=== PATIENT | female | born 1970 | race Caucasian/White ===

== ENCOUNTER 2016-04-22 08:21 | Emergency (ER) | payer MEDICAID ==
[~2016-04-22] VITALS: Ht 172.7 cm; Wt 118.6 kg
[~2016-04-22 08:21] MED LIST: HYDR-3533 PO; IBUP800T23 PO
[2016-04-22 08:27] VITALS: BP 144/87; PULSE 75; RESP 16; TEMP 98.2; O2SAT 96
--- NOTE | 2016-04-22 08:33 | PD ---
HPI Chief Complaint: Cold / Flu Symptoms Time Seen by Provider: 08:33 Travel History International Travel<30 days: No Contact w/Intl Traveler<30days: No Traveled to known affect area: No History of Present Illness HPI 45-year-old female came with flulike symptoms since past 3 days. She is complaining of some nasal and facial congestion, sore throat, cough, body aches. This has been going on since Monday. A number of her coworkers have the same symptoms. Patient did not get her flu shot this winter. Vital signs were otherwise stable. Patient says at home she's been getting hot with goose bumps but she took her temperature and she was afebrile. No history of vomiting or diarrhea. She's been answering questions appropriately. FORMERLY [facility] Past Medical History Narrative Medical List of her past medical, social and family history has been reviewed from the nursing note. Diabetes: Yes (GESTATIONAL) Diminished Hearing: No Immunizations Current: Yes Menopausal: No : 2 Para: 2 Past Surgical History Tonsillectomy: Yes Social History Alcohol Use: Yes (SOCIALLY) Tobacco Use: No Substance Use: No Allergies-Medications (Allergen,Severity, Reaction): Coded Allergies: Sodium Hypochlorite (Unverified Allergy, Severe, rash, 04/22/16) Bactrim (Verified Allergy, Intermediate, Nausea/Vomiting, 04/22/16) Codeine (Verified Allergy, Intermediate, GI UPSET, SWEATS, HIVES, 04/22/16) Penicillin (Verified Allergy, Intermediate, GI UPSET, SWEATS, HIVES, ) Comments List of her allergies reviewed from the nursing note. Reported Meds & Prescriptions Reported Meds & Active Scripts Active No Active Prescriptions or Reported Medications Narrative Medication List of her home medications reviewed from the nursing note. Review of Systems Except as stated in HPI: all other systems reviewed are Neg Physical Exam Narrative GENERAL: Awake, alert, mild distress SKIN: Warm and dry. HEAD: Atraumatic. Normocephalic. EYES: Pupils equal and round. No scleral icterus. No injection or drainage. ENT: No nasal bleeding or discharge. Mucous membranes pink and moist. Some frontal tenderness over the frontal sinuses on palpation NECK: Trachea midline. No JVD. CARDIOVASCULAR: Regular rate and rhythm. No murmur appreciated. RESPIRATORY: No accessory muscle use. Clear to auscultation. Breath sounds equal bilaterally. GASTROINTESTINAL: Abdomen soft, non-tender, nondistended. Hepatic and splenic margins not palpable. MUSCULOSKELETAL: No obvious deformities. No clubbing. No cyanosis. No edema. NEUROLOGICAL: Awake and alert. No obvious cranial nerve deficits. Motor grossly within normal limits. Normal speech. PSYCHIATRIC: Appropriate mood and affect; insight and judgment normal. Data Data Last Documented VS Orders Influenzae A/B Antigen (04/22/16 08:53) MDM Medical Decision Making Medical Screen Exam Complete: Yes Emergency Medical Condition: Yes Medical Record Reviewed: Yes Differential Diagnosis Influenza, viral illness, URI Narrative Course 9:21 AM influenza is negative. I have educated her regarding viral illness/URI/ , cold. She we will do symptomatic treatment. She understands. She'll be discharged home. Procedures EKG Prior to Arrival: No Diagnosis Primary Impression: URI (upper respiratory infection) Qualified Code: J06.9 - Upper respiratory tract infection, unspecified type Additional Impression: Viral illness Referrals: Primary Care Physician 3 days Departure Forms: Tests/Procedures, Work Release Enter return to work date: Apr 25, 2016 Additional Instructions: Please return to the ER if the condition worsens or any other new concerns. Take Motrin/ibuprofen/Tylenol for fever, headache, body aches as needed. Drink lots of fluids to keep herself hydrated. Warm tea with honey and lemon will help. Follow-up with your primary care in couple days. Med/Other Pt SpecificInfo: No Change to Meds Scripts No Active Prescriptions or Reported Meds Disposition: DISCHARGE HOME Condition: Ehsan Teresa MD Apr 22, 2016 08:33 lots of fluids to keep herself hydrated. Warm tea with honey and lemon will help. Follow-up with your primary care in couple days. Med/Other Pt SpecificInfo: No Change to Meds Scripts No Active Prescriptions or Reported Meds Disposition: DISCHARGE HOME Condition: Ehsan Teresa MD Apr 22, 2016 08:33
[2016-04-22 09:31] VITALS: BP 128/83
== END 2016-04-22 09:39 | disposition home or self-care (01) ==
LOC: PHED 08:21
DX: J06.9 Acute upper respiratory infection, unspecified (principal); B34.9 Viral infection, unspecified
CPT/HCPCS: 87804; 99283

== ENCOUNTER 2016-06-20 17:50 | Emergency (ER) | payer MEDICAID, OTHER ==
[~2016-06-20] VITALS: Ht 170.2 cm; Wt 121.0 kg
[2016-06-20 17:52] VITALS: BP 149/103; PULSE 93; RESP 16; TEMP 98.2; O2SAT 94
--- NOTE | 2016-06-20 18:11 | PD ---
HPI Chief Complaint: Pain: Acute or Chronic Time Seen by Provider: 18:09 Travel History International Travel<30 days: No Contact w/Intl Traveler<30days: No Traveled to known affect area: No History of Present Illness HPI 45-year-old female presents the emergency department with several day history of pain in the left calf which she states started when she "stretched". She says it has gotten progressively worse over the past several days, and is worse with ambulation. Patient denies any history of DVT or medications. She denies cough, fever, shortness of breath, or other constitutional symptoms. Patient is allergic to Bactrim, codeine, penicillin, and sodium hypochlorite. PFSH Past Medical History Hx Anticoagulant Therapy: No Cardiovascular Problems: Yes (GESTATIONAL HTN) Diabetes: Yes (GESTATIONAL) Diminished Hearing: No Immunizations Current: Yes ?: Not Menopausal: No : 2 Para: 2 Past Surgical History Tonsillectomy: Yes Social History Alcohol Use: Yes (SOCIALLY) Tobacco Use: No Substance Use: No Allergies-Medications (Allergen,Severity, Reaction): Coded Allergies: Sodium Hypochlorite (Unverified Allergy, Severe, rash, 06/20/16) Bactrim (Verified Allergy, Intermediate, Nausea/Vomiting, 06/20/16) Codeine (Verified Allergy, Intermediate, GI UPSET, SWEATS, HIVES, 06/20/16) Penicillin (Verified Allergy, Intermediate, GI UPSET, SWEATS, HIVES, ) Reported Meds & Prescriptions Reported Meds & Active Scripts Active No Active Prescriptions or Reported Medications Review of Systems Except as stated in HPI: all other systems reviewed are Neg General / Constitutional: No: Fever, Chills Eyes: No: Visual changes HENT: No: Headaches Cardiovascular: No: Chest Pain or Discomfort Respiratory: No: Shortness of Breath Gastrointestinal: No: Abdominal Pain Genitourinary: No: Dysuria Musculoskeletal: Positive: Edema, Pain (left lower calf.) Skin: No Rash Neurologic: No: Weakness Psychiatric: No: Depression Endocrine: No: Polydipsia Hematologic/Lymphatic: No: Easy Bruising Physical Exam Narrative GENERAL: Obese female in no acute distress. SKIN: Warm and dry. Normal color. Normal turgor. No signs of infection or cellulitis. HEAD: Atraumatic. Normocephalic. EYES: Pupils equal and round. No scleral icterus. No injection or drainage. ENT: No nasal bleeding or discharge. Mucous membranes pink and moist. Pharynx is clear. NECK: Trachea midline. Neck is supple nontender. CARDIOVASCULAR: Regular rate and rhythm. RESPIRATORY: No accessory muscle use. Clear to auscultation. Breath sounds equal bilaterally. GASTROINTESTINAL: Abdomen soft, non-tender, nondistended. Hepatic and splenic margins not palpable. MUSCULOSKELETAL: Extremities without clubbing, cyanosis, or edema. No obvious deformities. Patient has tenderness along the posterior left calf more medial than lateral, which is worse with dorsiflexion and plantar flexion. Patient complains of some mild tenderness as well with palpation of the distal medial thigh. No neurovascular deficits appreciated. NEUROLOGICAL: Awake and alert. No obvious cranial nerve deficits. Motor grossly within normal limits. Five out of 5 muscle strength in the arms and legs. Normal speech. PSYCHIATRIC: Appropriate mood and affect; insight and judgment normal. Data Data Last Documented VS Vital Signs Date Time Temp Pulse Resp B/P Pulse Ox O2 Delivery O2 Flow Rate FiO2 06/20/16 17:52 98.2 93 16 149/103 94 Orders Us Leg Venous Doppler (06/20/16 18:14) Complete Blood Count With Diff (06/20/16 18:14) Comprehensive Metabolic Panel (06/20/16 18:14) Prothrombin Time / Inr (Pt) (06/20/16 18:14) Act Partial Throm Time (Ptt) (06/20/16 18:14) Iv Access Insert/Monitor (06/20/16 18:14) Sodium Chloride 0.9% Flush (Ns Flush) (06/20/16 18:15) Ketorolac Inj (Toradol Inj) (06/20/16 18:15) Labs Laboratory Tests Test 06/20/16 18:40 White Blood Count 9.6 TH/MM3 Red Blood Count 5.19 MIL/MM3 Hemoglobin 12.7 GM/DL Hematocrit 39.9 % Mean Corpuscular Volume 76.8 FL Mean Corpuscular Hemoglobin 24.5 PG Mean Corpuscular Hemoglobin 31.9 % Concent Red Cell Distribution Width 15.1 % Platelet Count 375 TH/MM3 Mean Platelet Volume 8.2 FL Neutrophils (%) (Auto) 67.8 % Lymphocytes (%) (Auto) 20.1 % Monocytes (%) (Auto) 9.2 % Eosinophils (%) (Auto) 2.4 % Basophils (%) (Auto) 0.5 % Neutrophils # (Auto) 6.6 TH/MM3 Lymphocytes # (Auto) 1.9 TH/MM3 Monocytes # (Auto) 0.9 TH/MM3 Eosinophils # (Auto) 0.2 TH/MM3 Basophils # (Auto) 0.0 TH/MM3 CBC Comment AUTO DIFF Prothrombin Time 11.0 SEC Prothromb Time International 1.0 RATIO Ratio Activated Partial 33.8 SEC Thromboplast Time Sodium Level 141 MEQ/L Potassium Level 3.9 MEQ/L Chloride Level 105 MEQ/L Carbon Dioxide Level 29.6 MEQ/L Anion Gap 6 MEQ/L Blood Urea Nitrogen 12 MG/DL Creatinine 0.83 MG/DL Estimat Glomerular Filtration 75 ML/MIN Rate Random Glucose 102 MG/DL Calcium Level 9.1 MG/DL Total Bilirubin 0.2 MG/DL Aspartate Amino Transf 20 U/L (AST/SGOT) Alanine Aminotransferase 50 U/L (ALT/SGPT) Alkaline Phosphatase 76 U/L Total Protein 7.5 GM/DL Albumin 3.5 GM/DL [facility] Medical Decision Making Medical Screen Exam Complete: Yes Emergency Medical Condition: Yes Differential Diagnosis Calf strain. Muscle spasm. DVT. Narrative Course Labs ordered including CBC, CMP, PT PTT and INR. IV access is obtained. Patient is given 30 mg Toradol IV. Ultrasound of the left lower extremity is ordered. Ultrasound shows no significant DVT. Labs are unremarkable. Esdras bandages placed on the left lower calf. Patient felt improved after the Toradol IV. Patient discharged home with prescription for 600 mg ibuprofen 4 times daily # 40. Patient is to use moist heat to this area frequently through the day as much as possible. Patient is to use compression either with stockings were Esdras bandages for the next week until symptoms improve. Patient take extra strength Tylenol 2 every 6 hours as well. Patient follow with her primary care physician or return to emergency department if symptoms do not improve or worsen. Diagnosis Primary Impression: Tenderness of left calf Referrals: Primary Care Physician Patient Instructions: General Instructions, Muscle Strain (ED) Additional Instructions: Patient discharged home with prescription for 600 mg ibuprofen 4 times daily # 40. Patient is to use moist heat to this area frequently through the day as much as possible. Patient is to use compression either with stockings were Esdras bandages for the next week until symptoms improve. Patient take extra strength Tylenol 2 every 6 hours as well. Patient follow with her primary care physician or return to emergency department if symptoms do not improve or worsen. Med/Other Pt SpecificInfo: Prescription(s) given Scripts No Active Prescriptions or Reported Meds Disposition: 01 DISCHARGE HOME Condition: Stable Edson Aguayo Jun 20, 2016 18:11
[2016-06-20] MEDS ORDERED: KETOROLAC TROMETHAMINE 30 MG/ML (IVP) VIAL IVP ONE (18:15)
[2016-06-20] MEDS ORDERED: SODIUM CHLORIDE 0.9% FLUSH 10 ML FLUSH IV FLUSH PRN (18:15)
[2016-06-20 18:55] LABS: AUTOMATED NEUTROPHIL # 6.6 TH/MM3 (1.8-7.7); BASOPHIL % 0.5 % (0.0-2.0); EOSINOPHIL # 0.2 TH/MM3 (0-0.4); EOSINOPHIL % 2.4 % (0.0-4.0); HEMATOCRIT 39.9 % (35.0-46.0); LYMPH % 20.1 % (9.0-44.0); LYMPHOCYTE # 1.9 TH/MM3 (1.0-4.8); MEAN CELL VOLUME 76.8 FL (80.0-100.0); MEAN CORPUSCULAR HEMOGLOBIN 24.5 PG (27.0-34.0); MEAN CORPUSCULAR HGB CONC 31.9 % (32.0-36.0); MONO % 9.2 % (0.0-8.0); NEUT % 67.8 % (16.0-70.0); PLATELET COUNT 375 TH/MM3 (150-450); RED BLOOD COUNT 5.19 MIL/MM3 (4.00-5.30); RED CELL DISTRIBUTION WIDTH 15.1 % (11.6-17.2); WHITE BLOOD COUNT 9.6 TH/MM3 (4.0-11.0)
--- NOTE | 2016-06-20 19:11 | RADHPO ---
EXAM DATE/TIME: 06/20/2016 18:51 [facility] COMPARISON: US LEG LEFT VENOUS DOPPLER, July 01, 2015, 7:39. INDICATIONS : Left leg pain. MEDICAL HISTORY : Hypertension. Diabetes. SURGICAL HISTORY : Tonsillectomy. ENCOUNTER: Initial ACUITY: 4 - 6 days PAIN SCORE: 3/10 LOCATION: Left leg. TECHNIQUE: Venous ultrasound of the leg was performed from the inguinal ligament to the proximal calf. Real-keny e, color Doppler and spectral tracing, compression and augmentation techniques were used. FINDINGS: There is normal compressibility of the deep venous system from the inguinal region to the proximal ca lf. No echogenic clot is seen in the lumen of the common femoral, femoral, popliteal, and posterior tibial veins. There is a normal response of the venous system to proximal and distal augmentation an d respiration. CONCLUSION: Normal examination. Cirilo Young MD on June 20, 2016 at 19:09 Board Certified Radiologist. This report was verified electronically.
[2016-06-20 19:12] LABS: HEMO FLAGS AUTO DIFF
[2016-06-20 19:14] LABS: CHLORIDE 105 MEQ/L (98-107); POTASSIUM 3.9 MEQ/L (3.5-5.1); SODIUM (NA) 141 MEQ/L (136-145)
[2016-06-20 19:17] LABS: ANION GAP 6 MEQ/L (5-15); BICARBONATE 29.6 MEQ/L (21.0-32.0)
[2016-06-20 19:18] LABS: BLOOD UREA NITROGEN 12 MG/DL (7-18)
[2016-06-20 19:20] LABS: ALT (GPT) 50 U/L (10-53); AST (GOT) 20 U/L (15-37)
[2016-06-20 19:21] LABS: GLOMERULAR FILTRATION RATE 75 ML/MIN (>89)
[2016-06-20 19:22] LABS: TOTAL BILIRUBIN ADULT 0.2 MG/DL (0.2-1.0)
[2016-06-20 19:23] LABS: ALKALINE PHOSPHATASE 76 U/L (45-117)
[2016-06-20 19:25] LABS: APTT (PATIENT) 33.8 SEC (24.3-30.1)
[2016-06-20] MEDS ORDERED: IBUP-232 PO (19:29)
[2016-06-20] MEDS ORDERED: EXTR500C PO (19:29)
[2016-06-20 19:50] VITALS: BP 143/96; RESP 16
[2016-06-20 19:58] LABS: PLATELET ESTIMATE SMEAR NORMAL (NORMAL); PLATELET MORPHOLOGY NORMAL (NORMAL); SCAN/DIFF AUTO DIFF CONFIRMED
== END 2016-06-20 19:50 | disposition home or self-care (01) ==
LOC: PHED 17:50 → PHEFT 19:50
DX: M79.662 Pain in left lower leg (principal)
CPT/HCPCS: 80053; 85025; 85610; 85730; 93971; 96374; 99284; J1885

== ENCOUNTER 2016-08-28 21:52 | Emergency (ER) | payer MEDICAID ==
[~2016-08-28] VITALS: Ht 170.2 cm; Wt 121.0 kg
[~2016-08-28 21:52] MED LIST changes: +EXTR500C PO; -HYDR-3533 PO; +IBUP-232 PO; -IBUP800T23 PO
[2016-08-28 21:55] VITALS: BP 187/107; PULSE 82; RESP 18; TEMP 98.4; O2SAT 98
[2016-08-28] MEDS ORDERED: IBUP800T23 PO (23:09)
--- NOTE | 2016-08-28 23:10 | PD ---
HPI Chief Complaint: Musculoskeletal Complaint Time Seen by Provider: 23:10 Travel History International Travel<30 days: No Contact w/Intl Traveler<30days: No Traveled to known affect area: No History of Present Illness HPI 45-year-old female with 3 years of right posterior heel pain resents to the emergency department stating that it has continued to progressively worsen. Patient states she's been to an orthopedist and a lpn per diem and has had imaging as well as splinting and injections to the site and states that he did not provide any adequate relief. Patient states that 2 years ago she saw lpn per diem and had immobilization of the foot and had injections and taping it only helped temporarily orthopedist told her that she could could have an MRI that may be helpful but stated that she did not do so. Patient states that her pain is ongoing and 5 decided to have it rechecked at this time. Patient has taken no medications. Patient has not used any crutches to decrease weightbearing or assist with ambulation. Patient's had no recent injury. Patient denies other concerns or complaints. PFSH Past Medical History Hx Anticoagulant Therapy: No Cardiovascular Problems: Yes (GESTATIONAL HTN) Diabetes: Yes (GESTATIONAL) Patient Takes Glucophage: No Diminished Hearing: No Medical other: Yes (CHRONIC HEEL PAIN) Immunizations Current: Yes Tetanus Vaccination: < 5 Years Influenza Vaccination: No ?: Not LMP: 2 weeks ago Menopausal: No : 2 Para: 2 Past Surgical History Tonsillectomy: Yes Social History Alcohol Use: Yes (SOCIALLY) Tobacco Use: No Substance Use: No Allergies-Medications (Allergen,Severity, Reaction): Coded Allergies: Sodium Hypochlorite (Unverified Allergy, Severe, rash, 06/20/16) Bactrim (Verified Allergy, Intermediate, Nausea/Vomiting, 06/20/16) Codeine (Verified Allergy, Intermediate, GI UPSET, SWEATS, HIVES, 06/20/16) Penicillin (Verified Allergy, Intermediate, GI UPSET, SWEATS, HIVES, ) Reported Meds & Prescriptions Reported Meds & Active Scripts Active Ibuprofen 800 Mg Tab 800 Mg PO Q8H PRN Physical Exam Narrative GENERAL: Well-developed well-nourished female in no acute distress no respiratory distress MUSCULOSKELETAL: No cyanosis, or edema. Attention right lower extremity posterior foot/heel area of soft tissue tenderness to palpation without redness induration fluctuance and no increased warmth. Patient with warm pink foot without erythema or edema or deformity. Dorsalis pedis pulse 2+ to palpation posterior tibialis pulse 2+ to palpation capillary refill brisk less than 2 seconds per digit no pallor or coolness. Patient does not have plantar surface pain no obvious loss of skin integrity or puncture wound. Data Data Last Documented VS Vital Signs Date Time Temp Pulse Resp B/P Pulse Ox O2 Delivery O2 Flow Rate FiO2 08/28/16 21:55 98.4 82 18 187/107 98 Orders Mandatory Outpatient Referral (08/28/16 23:10) MDM Medical Decision Making Medical Screen Exam Complete: Yes Emergency Medical Condition: Yes Medical Record Reviewed: Yes Differential Diagnosis Tendinitis calcaneal spur plantar fasciitis stress fracture Narrative Course Discussed with patient re-imaging of plain film to evaluate for stress fracture although most likely has a tendinitis versus plantar fasciitis. Patient states she does not want a plain film she wants us to fix this heel and states that if we cannot fix the heel then she does not want us to do anything. Patient is offered a mandatory referral; patient is aware that there is no emergent change and that at this point in time without even a plain film and without imaging for the past [address] or an MRI is not indicated at this time as a plain film may be able to provide helpful information. Patient does not want any imaging performed and is desirous of being discharged to home patient is offered prescription for ibuprofen and a mandatory referral. Diagnosis Primary Impression: Ankle tendinitis Referrals: Stereotyper call for appointment Patient Instructions: General Instructions Additional Instructions: Elevate right ankle Follow-up with the lpn per diem Apply moist heat to heal May use as tolerated ibuprofen for inflammatory pain Return to the emergency department for any concerns Med/Other Pt SpecificInfo: Prescription(s) given Scripts Ibuprofen 800 Mg Sll338 Mg PO Q8H PRN (PAIN GREATER THAN 5) #15 TAB Ref 0 Prov:Marielos Serra MD 08/28/16 Disposition: 01 DISCHARGE HOME Condition: Stable Marielos Serra MD Aug 28, 2016 23:10
== END 2016-08-28 23:16 | disposition home or self-care (01) ==
LOC: PHEFT 21:52
DX: M77.9 Enthesopathy, unspecified (principal); Z87.39 Personal history of other diseases of the musculoskeletal system and connective tissue
CPT/HCPCS: 99283

== ENCOUNTER 2016-10-21 13:30 | Emergency (ER) | payer MEDICAID ==
[~2016-10-21] VITALS: Ht 170.2 cm; Wt 121.3 kg
[~2016-10-21 13:30] MED LIST changes: -EXTR500C PO; -IBUP-232 PO; +IBUP800T23 PO
[2016-10-21 13:47] VITALS: BP 171/77; PULSE 65; RESP 14; TEMP 97.6; O2SAT 97
[2016-10-21] MEDS ORDERED: KETOROLAC TROMETHAMINE 60 MG/2 ML (IM) VIAL IM ONE (15:00)
--- NOTE | 2016-10-21 15:03 | PD ---
HPI Chief Complaint: back pain Time Seen by Provider: 14:46 Travel History International Travel<30 days: No Contact w/Intl Traveler<30days: No History of Present Illness HPI This is a 46-year-old female who presents to the emergency department with back pain affecting mostly the right side, constant for the past several days, worse with movement of her right arm and movement from side to side, improved with rest described as an aching pain. Occasionally radiates down to her low back and then after her neck. She denies any dysuria, hematuria, fevers, chills, shortness of breath or chest pain. PFSH Past Medical History Hx Anticoagulant Therapy: No Cardiovascular Problems: Yes (GESTATIONAL HTN) Diabetes: Yes (GESTATIONAL) Diminished Hearing: No Immunizations Current: Yes Menopausal: No : 2 Para: 2 Past Surgical History Tonsillectomy: Yes Social History Alcohol Use: Yes (SOCIALLY) Tobacco Use: No Substance Use: No Allergies-Medications (Allergen,Severity, Reaction): Coded Allergies: sodium hypochlorite solution (Unverified Allergy, Severe, rash, 10/11/16) codeine (Unverified Allergy, Intermediate, GI UPSET, SWEATS, HIVES, ) penicillin G (Unverified Allergy, Intermediate, GI UPSET, SWEATS, HIVES, ) sulfamethoxazole (Unverified Allergy, Intermediate, Nausea/Vomiting, ) trimethoprim (Unverified Allergy, Intermediate, Nausea/Vomiting, 10/11/16) Reported Meds & Prescriptions Reported Meds & Active Scripts Active No Active Prescriptions or Reported Medications Review of Systems Except as stated in HPI: all other systems reviewed are Neg Physical Exam Narrative GENERAL:Well appearing, no acute distress SKIN: Focused skin assessment warm and dry. HEAD: Atraumatic. Normocephalic. EYES: Pupils equal and round. No injection or drainage. ENT: Moist mucous membranes NECK: Trachea midline. CARDIOVASCULAR: Regular rate and rhythm. No murmur appreciated. RESPIRATORY: Clear to auscultation. Breath sounds equal bilaterally. GASTROINTESTINAL: Abdomen soft, non-tender, nondistended. MUSCULOSKELETAL: Tender to palpation in the right mid thoracic musculature. Pain is reproduced when the patient abducts and internally rotates her right shoulder. No focal vertebral tenderness. NEUROLOGICAL: Awake and alert. No obvious cranial nerve deficits. Moving all extremities. PSYCHIATRIC: Appropriate mood and affect; insight and judgment normal. Data Data Last Documented VS Vital Signs Date Time Temp Pulse Resp B/P (MAP) Pulse Ox O2 Delivery O2 Flow Rate FiO2 10/21/16 13:47 97.6 65 14 171/77 (108) 97 Room Air Orders Orders Spine, Thoracic-Ap/Lat/Sw(3vw) (10/21/16 ) Ketorolac Inj (Toradol Inj) (10/21/16 15:00) MDM Medical Decision Making Medical Screen Exam Complete: Yes Emergency Medical Condition: Yes Interpretation(s) Afebrile, no tachycardia, hypertensive Differential Diagnosis Compression fracture, thoracic strain, epidural abscess, pulmonary embolism, nephrolithiasis Narrative Course This is a 46-year-old female who presents to the emergency department with back pain in the right thoracic area. She doesn't remember sustaining an injury. She has no shortness of breath or hypoxia to suggest pulmonary embolism. She has no urinary complaints. The pain is elicited when she moves her arm suggesting is musculoskeletal. X-ray of the thoracic spine is reassuring. I think the patient can be discharged home with anti-inflammatories and muscle relaxer. Diagnosis Primary Impression: Strain of thoracic spine Qualified Codes: S29.019A - Strain of muscle and tendon of unspecified wall of thorax, initial encounter Patient Instructions: General Instructions Additional Instructions: If you develop numbness, weakness, severe pain, chest pain, shortness of breath or new symptoms return to the emergency room. Med/Other Pt SpecificInfo: Prescription(s) given Scripts Carisoprodol (Soma) 350 Mg Tab 350 MG PO QID Y for PAIN, #10 TAB 0 Refills Prov: Shanika Gonzales MD 10/21/16 Meloxicam (Meloxicam) 7.5 Mg Tab 7.5 MG PO DAILY for Arthritis Pain for 10 Days, TAB 0 Refills Prov: Shanika Gonzales MD 10/21/16 Disposition: 01 DISCHARGE HOME Condition: Stable Shanika Gonzales MD Oct 21, 2016 15:03
[2016-10-21] MEDS ORDERED: MELO7.5T4 PO (15:42)
[2016-10-21] MEDS ORDERED: SOMA350T PO (15:42)
--- NOTE | 2016-10-21 15:57 | RADRPT ---
EXAM DATE/TIME: 10/21/2016 15:09 [facility] COMPARISON: No previous studies available for comparison. INDICATIONS : 3 days of back pain that shoots from middle of back to right shoulder blade. MEDICAL HISTORY : None. SURGICAL HISTORY : None. ENCOUNTER: Initial ACUITY: 3 days PAIN SCORE: 8/10 LOCATION: middle t spine FINDINGS: There is normal alignment of the thoracic vertebral bodies. Vertebral body height is maintained. No evidence of fracture or subluxation. Pedicles are intact at all levels. The paravertebral reflecti ons are not thickened. CONCLUSION: Unremarkable examination of the thoracic spine. Aris Ellington Jr., MD on October 21, 2016 at 15:50 Board Certified Radiologist. This report was verified electronically.
[2016-10-21 16:22] VITALS: BP 149/84
== END 2016-10-21 16:27 | disposition home or self-care (01) ==
LOC: PHED 13:30
DX: S29.019A Strain of muscle and tendon of unspecified wall of thorax, initial encounter (principal); X58.XXXA Exposure to other specified factors, initial encounter
CPT/HCPCS: 72072; 96372; 99284; J1885

== ENCOUNTER 2017-02-14 08:37 | Emergency (ER) | payer MEDICAID ==
[~2017-02-14] VITALS: Ht 157.5 cm; Wt 121.1 kg
[~2017-02-14 08:37] MED LIST changes: -IBUP800T23 PO; +MELO7.5T27 PO; +SOMA350T PO
[2017-02-14 08:44] VITALS: BP 142/94; PULSE 93; RESP 18; TEMP 98.6; O2SAT 97
--- NOTE | 2017-02-14 09:12 | PD ---
HPI Chief Complaint: Cold / Flu Symptoms Time Seen by Provider: 09:10 Travel History International Travel<30 days: No Contact w/Intl Traveler<30days: No Traveled to known affect area: No History of Present Illness HPI 46-year-old female presents the emergency department with 2 day history of increasing upper respiratory congestion, cough, headache, fever, chills, and body aches. Patient denies nausea or vomiting. Her cough is nonproductive. She has a positive exposure to influenza at work. Patient feels worse today than she did yesterday. She is unsure specific fever home and has had chills. She is allergic to codeine, penicillin, sodium hypochlorite solution, and sulfa. PFSH Past Medical History Hx Anticoagulant Therapy: No Cardiovascular Problems: Yes (GESTATIONAL HTN) Diabetes: Yes (GESTATIONAL) Diminished Hearing: No Immunizations Current: Yes ?: Not Menopausal: No : 2 Para: 2 Past Surgical History Tonsillectomy: Yes Social History Alcohol Use: Yes (SOCIALLY) Tobacco Use: No Substance Use: No Allergies-Medications (Allergen,Severity, Reaction): Coded Allergies: sodium hypochlorite solution (Unverified Allergy, Severe, rash, 02/14/17) codeine (Unverified Allergy, Intermediate, GI UPSET, SWEATS, HIVES, ) penicillin G (Unverified Allergy, Intermediate, GI UPSET, SWEATS, HIVES, 02/14/17) sulfamethoxazole (Unverified Allergy, Intermediate, Nausea/Vomiting, 02/14) trimethoprim (Unverified Allergy, Intermediate, Nausea/Vomiting, 02/14/17) Reported Meds & Prescriptions Reported Meds & Active Scripts Active Tamiflu (Oseltamivir Phosphate) 75 Mg Cap 75 Mg PO BID 5 Days Review of Systems Except as stated in HPI: all other systems reviewed are Neg General / Constitutional: Positive: Chills, No: Fever Eyes: No: Visual changes HENT: Positive: Headaches, Sore Throat, Rhinitis, Rhinorrhea, Congestion, No: Nosebleed, Neck Stiffness, Neck Pain, Gingival Bleeding, Dental Difficulties, Ear Discharge, Earache Cardiovascular: No: Chest Pain or Discomfort Respiratory: Positive: Cough, Sneezing, Night Sweats, No: Shortness of Breath, Wheezing, Orthopnea, Hemoptysis, Pleuritic Pain Gastrointestinal: No: Abdominal Pain Genitourinary: No: Dysuria Musculoskeletal: No: Pain Skin: No Rash Neurologic: No: Weakness Psychiatric: No: Depression Endocrine: No: Polydipsia Hematologic/Lymphatic: No: Easy Bruising Physical Exam Narrative GENERAL: Patient appears ill but not septic. SKIN: Warm and dry. Decreased pallor. Normal turgor. HEAD: Atraumatic. Normocephalic. EYES: Pupils equal and round. No scleral icterus. No injection or drainage. ENT: No nasal bleeding, but moderate clear nasal discharge. Mucous membranes pale blue and moist. Posterior pharynx appears unremarkable. Airway is patent. TMs are clear bilaterally. NECK: Trachea midline. Supple and nontender. CARDIOVASCULAR: Regular rate and rhythm. RESPIRATORY: No accessory muscle use. Coarse to auscultation. No significant wheezes, rales, or rhonchi Breath sounds equal bilaterally. GASTROINTESTINAL: Abdomen soft, non-tender, nondistended. Hepatic and splenic margins not palpable. MUSCULOSKELETAL: Extremities without clubbing, cyanosis, or edema. No obvious deformities. NEUROLOGICAL: Awake and alert. No obvious cranial nerve deficits. Motor grossly within normal limits. Five out of 5 muscle strength in the arms and legs. Normal speech. PSYCHIATRIC: Appropriate mood and affect; insight and judgment normal. Data Data Last Documented VS Vital Signs Date Time Temp Pulse Resp B/P (MAP) Pulse Ox O2 Delivery O2 Flow Rate FiO2 02/14/17 08:44 98.6 93 18 142/94 (110) 97 MDM Medical Decision Making Medical Screen Exam Complete: Yes Emergency Medical Condition: Yes Differential Diagnosis Upper respiratory infection. Bronchitis. Influenza. Narrative Course Patient has positive exposure to the flu at work. Patient presumed to have influenza. Patient will be treated empirically with Tamiflu 75 mg twice a day for 5 days. Patient is to use [id number] cough and cold medicines as needed. Work note is given. Patient follow up if symptoms do not improve or worsen as needed. Diagnosis Primary Impression: Influenza Patient Instructions: General Instructions, Oseltamivir (By mouth) Departure Forms: Work Release Special Instructions: Patient is not to return to work until fever free for 24 hours as she has influenza. Scripts Oseltamivir (Tamiflu) 75 Mg Cap 75 MG PO BID for Mgmt Viral Infection for 5 Days, #10 CAP 0 Refills Prov: Ehsan Babcock MD 02/14/17 Disposition: 01 DISCHARGE HOME Condition: Stable Edson Aguayo Feb 14, 2017 09:11
[2017-02-14] MEDS ORDERED: OSEL75 PO (09:14)
== END 2017-02-14 09:42 | disposition home or self-care (01) ==
LOC: PHED 08:37
DX: J11.1 Influenza due to unidentified influenza virus with other respiratory manifestations (principal)
CPT/HCPCS: 99283

== ENCOUNTER 2017-02-16 18:11 | Emergency (ER) | payer MEDICAID ==
[~2017-02-16 18:11] MED LIST changes: -MELO7.5T27 PO; +OSEL75 PO; -SOMA350T PO
[2017-02-16 18:17] VITALS: BP 170/90; PULSE 72; RESP 20; TEMP 98.2; O2SAT 97
--- NOTE | 2017-02-16 18:52 | PD ---
HPI Chief Complaint: Cold / Flu Symptoms Time Seen by Provider: 18:29 Travel History International Travel<30 days: No Contact w/Intl Traveler<30days: No Traveled to known affect area: No History of Present Illness HPI The patient was seen and examined in the presence of the nurse. This patient was seen here 2 days ago and diagnosed with presumptive influenza. She is started on Tamiflu. She comes back today She is no better. She has cough and congestion and body aches. Excessive coughing has made her chest ache. Pain is not exertional. Symptoms severity is moderate PFSH Past Medical History Hx Anticoagulant Therapy: No Cardiovascular Problems: Yes (GESTATIONAL HTN) Diabetes: Yes (GESTATIONAL) Patient Takes Glucophage: No Diminished Hearing: No Immunizations Current: Yes Tetanus Vaccination: < 5 Years Influenza Vaccination: No ?: Not LMP: 02/02/17 Menopausal: No : 2 Para: 2 Past Surgical History Surgical History: No Previous Surgery Tonsillectomy: Yes Social History Alcohol Use: Yes (SOCIALLY) Tobacco Use: No Substance Use: No Allergies-Medications (Allergen,Severity, Reaction): Coded Allergies: sodium hypochlorite solution (Unverified Allergy, Severe, rash, 02/16/17) codeine (Unverified Allergy, Intermediate, GI UPSET, SWEATS, HIVES, ) penicillin G (Unverified Allergy, Intermediate, GI UPSET, SWEATS, HIVES, 02/16/17) sulfamethoxazole (Unverified Allergy, Intermediate, Nausea/Vomiting, 02/16) trimethoprim (Unverified Allergy, Intermediate, Nausea/Vomiting, 02/16/17) Reported Meds & Prescriptions Reported Meds & Active Scripts Active Tamiflu (Oseltamivir Phosphate) 75 Mg Cap 75 Mg PO BID 5 Days Review of Systems General / Constitutional: Positive: Fever HENT: No: Headaches Respiratory: Positive: Cough Physical Exam Narrative RESPIRATORY: Respiratory effort unlabored, no retractions or use of accessory muscles. Breath sounds are clear and symmetric. CARDIOVASCULAR: Regular rate and rhythm without murmur. Extremities showed no edema or varicosities. GASTROINTESTINAL: Abdomen soft, non-tender, nondistended. Positive bowel sounds. No hepato-splenomegaly, or palpable masses. No guarding. Throat clear Data Data Last Documented VS Vital Signs Date Time Temp Pulse Resp B/P (MAP) Pulse Ox O2 Delivery O2 Flow Rate FiO2 12/21/17 18:28 97 Room Air 02/16/17 18:17 98.2 72 20 170/90 (116) MDM Medical Decision Making Medical Screen Exam Complete: Yes Emergency Medical Condition: Yes Medical Record Reviewed: Yes Differential Diagnosis Flu syndrome, bronchitis, pneumonia Narrative Course I have reviewed the patient's electronic medical record. Presentation here is very consistent with acute viral syndrome. As she is currently taking Tamiflu I don't see much value to obtaining influenza swabs. I reviewed her EKG which is normal. This is not consistent with ACS. Supportive care discussed. Diagnosis Primary Impression: Acute viral syndrome Additional Instructions: The patient was advised to follow up with their physician and return if they worsen. Med/Other Pt SpecificInfo: Other Disposition: 01 DISCHARGE HOME Condition: Stable Robi Zelaya MD Feb 16, 2017 18:52
[2017-02-16 19:20] VITALS: BP 131/85; TEMP 98.9
--- NOTE | 2017-02-16 23:38 | EKG ---
Date Performed: 02/16/2017 Time Performed: 18:40:50 PTAGE: 46 years EKG: Sinus rhythm NORMAL ECG PREVIOUS TRACING : 06/26/1992 00.45 Compared to prior tracing no significant change DOCTOR: Prasanna Arana Interpretating Date/Time 02/16/2017 23:37:14
== END 2017-02-16 19:24 | disposition home or self-care (01) ==
LOC: PHED 18:11
DX: B34.9 Viral infection, unspecified (principal)
CPT/HCPCS: 93005

== ENCOUNTER 2017-06-30 16:22 | Emergency (ER) | payer MEDICAID ==
[~2017-06-30] VITALS: Ht 170.2 cm; Wt 113.3 kg
[2017-06-30 16:26] VITALS: BP 149/73; PULSE 63; RESP 16; TEMP 98.7; O2SAT 98
[2017-06-30] MEDS ORDERED: SODIUM CHLORIDE 0.9% FLUSH 10 ML FLUSH IVF PRN (16:45)
[2017-06-30 17:04] LABS: AUTOMATED NEUTROPHIL # 5.8 TH/MM3 (1.8-7.7); BASOPHIL # 0.1 TH/MM3 (0-0.2); BASOPHIL % 1.5 % (0.0-2.0); EOSINOPHIL # 0.2 TH/MM3 (0-0.4); EOSINOPHIL % 1.9 % (0.0-4.0); HEMATOCRIT 39.8 % (35.0-46.0); HEMOGLOBIN 13.3 GM/DL (11.6-15.3); LYMPH % 22.2 % (9.0-44.0); MEAN CELL VOLUME 77.7 FL (80.0-100.0); MEAN CORPUSCULAR HEMOGLOBIN 25.8 PG (27.0-34.0); MEAN CORPUSCULAR HGB CONC 33.3 % (32.0-36.0); MEAN PLATELET VOLUME 8.7 FL (7.0-11.0); MONO % 8.8 % (0.0-8.0); MONOCYTE # 0.8 TH/MM3 (0-0.9); NEUT % 65.6 % (16.0-70.0); PLATELET COUNT 409 TH/MM3 (150-450); RED BLOOD COUNT 5.13 MIL/MM3 (4.00-5.30); RED CELL DISTRIBUTION WIDTH 14.4 % (11.6-17.2); WHITE BLOOD COUNT 8.9 TH/MM3 (4.0-11.0)
--- NOTE | 2017-06-30 17:04 | PD ---
HPI Chief Complaint: Musculoskeletal Complaint Time Seen by Provider: 16:35 Travel History International Travel<30 days: No Contact w/Intl Traveler<30days: No Traveled to known affect area: No History of Present Illness HPI This is a 43-year-old female here with right shoulder pain 4 days. Cannot recall specific injury or trauma. Reports pain is constant aching and becomes sharp with range of motion. Denies chest pain, diaphoresis or shortness of breath. Symptom severity is moderate. Reports pain has been consistent for 4 days not increasing in severity. Aggravated by movement slightly relieved with rest. No associating factors. PFSH Past Medical History Medical History: Denies Significant Hx Hx Anticoagulant Therapy: No Diminished Hearing: No Immunizations Current: Yes Tetanus Vaccination: < 5 Years Influenza Vaccination: No ?: Not Menopausal: No : 2 Para: 2 Past Surgical History Tonsillectomy: Yes Social History Alcohol Use: Yes (SOCIALLY) Tobacco Use: No Substance Use: No Allergies-Medications (Allergen,Severity, Reaction): Coded Allergies: sodium hypochlorite solution (Unverified Allergy, Severe, rash, 06/30/17) codeine (Unverified Allergy, Intermediate, GI UPSET, SWEATS, HIVES, 06/30/17 ) penicillin G (Unverified Allergy, Intermediate, GI UPSET, SWEATS, HIVES, ) sulfamethoxazole (Unverified Allergy, Intermediate, Nausea/Vomiting, ) trimethoprim (Unverified Allergy, Intermediate, Nausea/Vomiting, 06/30/17) Reported Meds & Prescriptions Reported Meds & Active Scripts Active No Active Prescriptions or Reported Medications Review of Systems Except as stated in HPI: all other systems reviewed are Neg General / Constitutional: No: Fever Eyes: No: Visual changes HENT: No: Headaches Cardiovascular: No: Chest Pain or Discomfort Respiratory: No: Shortness of Breath Gastrointestinal: No: Abdominal Pain Genitourinary: No: Dysuria Physical Exam Narrative GENERAL: Alert and well-appearing 46-year-old Female SKIN: Warm and dry. HEAD: Normocephalic. EYES: No scleral icterus. No injection or drainage. NECK: Supple, trachea midline. + Right trapezius muscle tenderness CARDIOVASCULAR: Regular rate and rhythm without murmurs, gallops, or rubs. RESPIRATORY: Breath sounds equal bilaterally. No accessory muscle use. GASTROINTESTINAL: Abdomen soft, non-tender, nondistended. MUSCULOSKELETAL: No cyanosis, or edema. RUE: + Tenderness right trapezius muscle and proximal humerus. Forward extension and external rotation of the shoulder reproduce pain. 2+ distal pulses. Normal sensation. Brisk cap refill. BACK: Nontender without obvious deformity. No CVA tenderness. Data Data Last Documented VS Vital Signs Date Time Temp Pulse Resp B/P (MAP) Pulse Ox O2 Delivery O2 Flow Rate FiO2 06/30/17 16:26 98.7 63 16 149/73 (98) 98 Orders Orders Electrocardiogram (06/30/17 16:41) Basic Metabolic Panel (Bmp) (06/30/17 16:41) Complete Blood Count With Diff (06/30/17 16:41) Troponin I (06/30/17 16:41) Iv Access Insert/Monitor (06/30/17 16:41) Sodium Chloride 0.9% Flush (Ns Flush) (06/30/17 16:45) Shoulder, Complete (>2vws) (06/30/17 ) Ketorolac Inj (Toradol Inj) (06/30/17 17:45) Orphenadrine Inj (Norflex Inj) (06/30/17 17:45) Support Splint (06/30/17 17:35) Labs Laboratory Tests Test 06/30/17 16:50 White Blood Count 8.9 TH/MM3 Red Blood Count 5.13 MIL/MM3 Hemoglobin 13.3 GM/DL Hematocrit 39.8 % Mean Corpuscular Volume 77.7 FL Mean Corpuscular Hemoglobin 25.8 PG Mean Corpuscular Hemoglobin Concent 33.3 % Red Cell Distribution Width 14.4 % Platelet Count 409 TH/MM3 Mean Platelet Volume 8.7 FL Neutrophils (%) (Auto) 65.6 % Lymphocytes (%) (Auto) 22.2 % Monocytes (%) (Auto) 8.8 % Eosinophils (%) (Auto) 1.9 % Basophils (%) (Auto) 1.5 % Neutrophils # (Auto) 5.8 TH/MM3 Lymphocytes # (Auto) 2.0 TH/MM3 Monocytes # (Auto) 0.8 TH/MM3 Eosinophils # (Auto) 0.2 TH/MM3 Basophils # (Auto) 0.1 TH/MM3 CBC Comment DIFF FINAL Differential Comment Blood Urea Nitrogen 11 MG/DL Creatinine 0.63 MG/DL Random Glucose 81 MG/DL Calcium Level 8.7 MG/DL Sodium Level 140 MEQ/L Potassium Level 3.9 MEQ/L Chloride Level 105 MEQ/L Carbon Dioxide Level 29.0 MEQ/L Anion Gap 6 MEQ/L Estimat Glomerular Filtration Rate 103 ML/MIN Troponin I LESS THAN 0.02 NG/ML MDM Medical Decision Making Medical Screen Exam Complete: Yes Emergency Medical Condition: Yes Interpretation(s) EKG: Reviewed with Dr. Anaya. sinus rhythm. Rate 64. No ischemic changes Differential Diagnosis Rotator cuff injury, tendinitis, ACS Narrative Course 46-year-old female here with right shoulder pain 4 days with no known injury. She is well-appearing. Pain is reproducible. X-ray shoulder is negative for fracture. EKG showed no ischemic changes. Troponin is negative. She was given a shot of Toradol and Norflex reports symptom improvement. She is stable and ready for discharge. Return precautions discussed. Diagnosis Primary Impression: Shoulder pain Qualified Codes: M25.511 - Pain in right shoulder Referrals: Milad Boudreaux MD Primary Care Physician Departure Forms: Tests/Procedures, Work Release Enter return to work date: July 03, 2017 Additional Instructions: Sling for comfort. Medication as directed. Follow-up with primary doctor. Return if you have new or worsening symptoms Scripts Methocarbamol (Robaxin) 750 Mg Tab 750 MG PO QID for Muscle Spasm, #14 TAB 0 Refills Prov: Tatum Miller 06/30/17 Ibuprofen (Ibuprofen) 800 Mg Tab 800 MG PO Q6HR Y for PAIN, #40 TAB 0 Refills Prov: Tatum Miller 06/30/17 Disposition: 01 DISCHARGE HOME Condition: Stable Tatum Miller June 30, 2017 17:04
[2017-06-30 17:15] LABS: CHLORIDE 105 MEQ/L (98-107); SODIUM (NA) 140 MEQ/L (136-145)
[2017-06-30 17:19] LABS: BLOOD UREA NITROGEN 11 MG/DL (7-18); CALCIUM 8.7 MG/DL (8.5-10.1); GLUCOSE,RANDOM 81 MG/DL (74-106)
--- NOTE | 2017-06-30 17:20 | RADRPT ---
EXAM DATE/TIME: 06/30/2017 16:58 [facility] COMPARISON: No previous studies available for comparison. INDICATIONS : Right shoulder pain. No known injury. MEDICAL HISTORY : Hypertension. Diabetes SURGICAL HISTORY : Tonsillectomy. ENCOUNTER: Initial ACUITY: 3 days PAIN SCORE: 7/10 LOCATION: Right upper extremity FINDINGS: Multiple view examination of the right shoulder demonstrates no evidence of fracture or dislocation. The glenohumeral and acromioclavicular joints are maintained. There is normal range of motion betwe en internal and external rotation. Bony mineralization is normal. CONCLUSION: Negative for fracture or dislocation. Follow up in 7-10 days is suggested if symptoms persist. Minor Mathews MD FACR on June 30, 2017 at 17:18 Board Certified Radiologist. This report was verified electronically.
[2017-06-30 17:22] LABS: CREATININE 0.63 MG/DL (0.50-1.00); GLOMERULAR FILTRATION RATE 103 ML/MIN (>89)
[2017-06-30 17:27] LABS: TROPONIN I LESS THAN 0.02 NG/ML (0.02-0.05)
[2017-06-30] MEDS ORDERED: IBUP1TAB7 PO (17:43)
[2017-06-30] MEDS ORDERED: ROBA750T PO (17:43)
[2017-06-30] MEDS ORDERED: KETOROLAC TROMETHAMINE 60 MG/2 ML (IM) VIAL IM ONE (17:45)
[2017-06-30] MEDS ORDERED: ORPHENADRINE INJ 60 MG/2 ML AMP IM ONE (17:45)
--- NOTE | 2017-07-01 13:50 | EKG ---
Date Performed: 06/30/2017 Time Performed: 16:56:21 PTAGE: 46 years EKG: Sinus rhythm MODERATE VOLTAGE CRITERIA FOR LVH, CONSIDER NORMAL VARIANT BORDERLINE ECG PREVIOUS TRACING : 02/16/2017 18.40 Since the previous tracing, no significant change noted DOCTOR: Ayad Ray Interpretating Date/Time 07/01/2017 13:48:55
== END 2017-06-30 17:54 | disposition home or self-care (01) ==
LOC: PHEFT 16:22
DX: M25.511 Pain in right shoulder (principal); Z88.5 Allergy status to narcotic agent; Z88.0 Allergy status to penicillin; Z88.2 Allergy status to sulfonamides; Z88.8 Allergy status to other drugs, medicaments and biological substances
CPT/HCPCS: 73030; 80048; 84484; 85025; 93005; 96372; 99285; J1885; J2360

== ENCOUNTER 2017-07-13 16:36 | Emergency (ER) | payer MEDICAID ==
[~2017-07-13] VITALS: Ht 172.7 cm; Wt 114.0 kg
[~2017-07-13 16:36] MED LIST changes: +IBUP1TAB7 PO; -OSEL75 PO; +ROBA750T PO
[2017-07-13 16:59] VITALS: BP 167/94; PULSE 67; RESP 16; TEMP 98.6; O2SAT 96
[2017-07-13] MEDS ORDERED: TRAM50 PO (17:45)
[2017-07-13] MEDS ORDERED: IBUP1TAB7 PO (17:45)
--- NOTE | 2017-07-13 17:46 | PD ---
HPI Chief Complaint: Musculoskeletal Complaint Time Seen by Provider: 17:23 Travel History International Travel<30 days: No Contact w/Intl Traveler<30days: No Traveled to known affect area: No History of Present Illness HPI 46-year-old female here with right shoulder pain that is reproducible to palpation and elicited by range of motion. This is ongoing for several weeks. She was previously seen for this and instructed to follow-up with orthopedist for possible rotator cuff injury. She states she is uninsured and was unable to follow-up. She reports she has some symptom improvement with the NSAIDs and muscle relaxers that were prescribed from previous visit. She denies chest pain , shortness of breath, paresthesia or weakness of the extremity. Symptom severity is mild to moderate. Aggravated by movement of the neck and right shoulder. PFSH Past Medical History Hx Anticoagulant Therapy: No Cardiovascular Problems: Yes (GESTATIONAL HTN) Diabetes: Yes (GESTATIONAL) Patient Takes Glucophage: No Diminished Hearing: No Immunizations Current: Yes Tetanus Vaccination: < 5 Years Influenza Vaccination: Yes ?: Not LMP: 3 WEEKS AGO Menopausal: No : 2 Para: 2 Past Surgical History Tonsillectomy: Yes Social History Alcohol Use: Yes (SOCIALLY) Tobacco Use: No Substance Use: No Allergies-Medications (Allergen,Severity, Reaction): Coded Allergies: sodium hypochlorite solution (Unverified Allergy, Severe, rash, 07/13/17) codeine (Unverified Allergy, Intermediate, GI UPSET, SWEATS, HIVES, ) penicillin G (Unverified Allergy, Intermediate, GI UPSET, SWEATS, HIVES, ) sulfamethoxazole (Unverified Allergy, Intermediate, Nausea/Vomiting, ) trimethoprim (Unverified Allergy, Intermediate, Nausea/Vomiting, 07/13/17) Reported Meds & Prescriptions Reported Meds & Active Scripts Active Ultram (Tramadol HCl) 50 Mg Tab 50 Mg PO Q6H PRN Ibuprofen 800 Mg Tab 800 Mg PO Q6HR PRN Review of Systems Except as stated in HPI: all other systems reviewed are Neg General / Constitutional: No: Fever Eyes: No: Visual changes HENT: No: Headaches Cardiovascular: No: Chest Pain or Discomfort Respiratory: No: Shortness of Breath Gastrointestinal: No: Abdominal Pain Genitourinary: No: Dysuria Physical Exam Narrative GENERAL: Alert and well-appearing 46-year-old female SKIN: Warm and dry. HEAD: Normocephalic. EYES: No scleral icterus. No injection or drainage. NECK: Supple, trachea midline. CARDIOVASCULAR: Regular rate and rhythm without murmurs, gallops, or rubs. RESPIRATORY: Breath sounds equal bilaterally. No accessory muscle use. GASTROINTESTINAL: Abdomen soft, non-tender, nondistended. MUSCULOSKELETAL: No cyanosis, or edema. RUE: +ttp right trapezius muscle and over the rotator cuff tendons. Positive Neer's test. Normal sensation distally. Palpable pulses. Brisk cap refill. BACK: Nontender without obvious deformity. No CVA tenderness. Data Data Last Documented VS Vital Signs Date Time Temp Pulse Resp B/P (MAP) Pulse Ox O2 Delivery O2 Flow Rate FiO2 07/13/17 16:59 98.6 67 16 167/94 (118) 96 Orders Orders Ketorolac Inj (Toradol Inj) (07/13/17 18:00) [facility] Medical Decision Making Medical Screen Exam Complete: Yes Emergency Medical Condition: Yes Differential Diagnosis Rotator cuff injury, trapezius muscle spasm, cervical radiculopathy Narrative Course 46-year-old female here with right shoulder pain that is reproducible to palpation and elicited by range of motion. This is ongoing for several weeks. At her prior visit she had an unremarkable x-ray of the shoulder, normal EKG, negative cardiac enzymes. She is well-appearing. She reports she had symptom improvement with 800 mg ibuprofen. She was referred to orthopedic/PCP for follow-up for possible rotator cuff injury but reports she is uninsured. She was given information for the [facility]. Return precautions were discussed. Patient verbalized understanding and agrees to plan Diagnosis Primary Impression: Shoulder pain Qualified Codes: M25.511 - Pain in right shoulder Referrals: [facility] Additional Instructions: Medication as directed. Follow-up with the clinic as directed. Return if you develop new or worsening symptoms. Scripts Tramadol (Ultram) 50 Mg Tab 50 MG PO Q6H Y for PAIN, #12 TAB 0 Refills Prov: Tatum Miller 07/13/17 Ibuprofen (Ibuprofen) 800 Mg Tab 800 MG PO Q6HR Y for PAIN, #40 TAB 0 Refills Prov: Tatum Miller 07/13/17 Disposition: 01 DISCHARGE HOME Condition: Stable Tatum Miller July 13, 2017 17:46
[2017-07-13] MEDS ORDERED: KETOROLAC TROMETHAMINE 60 MG/2 ML (IM) VIAL IM ONE (18:00)
== END 2017-07-13 17:56 | disposition home or self-care (01) ==
LOC: PHEFT 16:36
DX: M25.511 Pain in right shoulder (principal)
CPT/HCPCS: 96372